=== PATIENT | female | born 1990 | race Two or more races ===

== ENCOUNTER 2025-03-09 19:43 | Emergency (ER) | payer OTHER ==
[~2025-03-09] VITALS: Ht 172.7 cm; Wt 74.8 kg
[2025-03-09] MEDS ORDERED: ACETAMINOPHEN 500 MG GEL..CAP PO ONE (21:00)
[2025-03-09] MEDS ORDERED: METOCLOPRAMIDE HCL 5 MG/ML VIAL IM ONE (21:00)
[2025-03-09] MEDS ORDERED: DEXAMETHASONE SODIUM PHOSPHATE 4 MG/ML VIAL IM ONE (21:00)
[2025-03-09] MEDS ORDERED: 0.9 % SODIUM CHLORIDE 1,000 ML IV SCH (21:00)
[2025-03-09] MEDS ORDERED: REGLAN5 MG/5 ML PO (23:57)
[2025-03-09] MEDS ORDERED: BUTALB-ACETAMI1 EACH PO (23:57)
== END 2025-03-10 00:33 | disposition home or self-care (01) ==
LOC: ER 19:44
DX: G43.909 Migraine, unspecified, not intractable, without status migrainosus (principal)